=== PATIENT | male | born 1990 | race Caucasian/White ===

== ENCOUNTER 2016-05-24 00:53 | Emergency (ER) | payer BC ==
[2016-05-24 01:09] VITALS: BP 150/90
--- NOTE | 2016-05-24 01:58 | ERNOTE ---
Abdominal HPI - General Chief Complaint: Abdominal Pain Time Seen by Provider: 05/24/16 01:45 Source: patient Exam Limitations: no limitations - Immun/Allergies/Home Medications Immunizatons: IMMUNIZATION HX Immunizations Up to Date Yes History of Influenza Vaccine No Hx Pneumococcal Vaccination No Allergies/Adverse Reactions: Allergies Penicillins Allergy (Mild, Verified 09/04/15 15:57) Hives Home Medications: HOME MEDICATIONS Albuterol Sulfate [Proair Hfa] 2 puff IH Q4H PRN #1 inhaler 09/04/15 [Last Taken Unknown] Ibuprofen [Motrin] 1,000 mg PO PRN PRN 09/04/15 [Last Taken Unknown] Ibuprofen [Motrin] 800 mg PO TID PRN #60 tab 09/04/15 [Last Taken Unknown] Phenylephrine/Dm/Acetaminop/GG [Tylenol Cold & Flu Severe Cplt] 1 each PO PRN PRN 09/04/15 [Last Taken Unknown] - History of Present Illness Narrative: Pt states his abdomen is feeling queesy. this makes him feel unmotivated. occasional pains Timing: intermittent Quality: mild, moderate Activities at Onset: none Associated Symptoms: Present: other - lack of ambition Review of Systems - Review of Systems Constitutional: Present: chills - hot and cold. Absent: recent illness, fever EYE: Present: no symptoms reported ENT: Present: no symptoms reported Respiratory: Present: no symptoms reported Cardiology: Present: no symptoms reported Gastrointestinal/Abdominal: Present: diarrhea - mldly. Absent: vomiting, constipation Genitourinary: Absent: frequency, pain Musculoskeletal: Present: no symptoms reported Skin: Present: no symptoms reported Neurological: Present: no symptoms reported - Patient's Past Medical History Patient History - Medical: No pertinent hx Patient History - Cardiac/Respiratory: No pertinent hx Patient History - Cancer: No Hx of Cancer Patient History - Surgical Procedures: Other Patient History - Other: None - Family History Mother Family History - Medical: No pertinent hx Father Family History - Medical: Diabetes Type 2 - Social History Living Situations: home Smoking Status: Never smoker Alcohol Use: none Drug Use: none - Immunizations Immunizations Up to Date: Yes Hx Pneumococcal Vaccination: No History of Influenza Vaccine: No Physical Exam - Physical Exam General Appearance: Present: wd/wn, alert, no apparent distress Eye Exam: Normal inspection: bilateral Respiratory: Present: no respiratory distress, normal breath sounds, lungs clear Cardiovascular/Chest: Present: regular rate, rhythm, no murmur, normal peripheral pulses Gastrointestinal/Abdominal: Present: normal bowel sounds, nondistended, soft, tenderness - LUQ, RLQ Back Exam: Present: normal inspection, normal range of motion, no CVA tenderness Extremity Exam: Present: normal inspection, non-tender, no edema, normal range of motion Neurological Exam: Present: alert, oriented, normal mood/affect, no motor/ sensory deficits Skin Exam: Present: normal color, warm/dry ED Progress - Results and Orders Patient's Lab Results:: I have reviewed the patient's lab results. Results and Orders: Laboratory Tests 05/24/16 05/24/16 05/24/16 01:55 02:00 02:00 WBC 7.9 Hgb 15.7 Hct 45.0 Plt Count 254 Sodium 140 Potassium 3.9 Chloride 104 Carbon Dioxide 25.0 BUN 14 Creatinine 0.75 Est GFR (Non-Af Amer) 133 H Random Glucose 115 H Calcium 8.9 Total Bilirubin 0.7 AST 31 ALT 74 H Alkaline Phosphatase 68 Total Protein 7.7 Albumin 4.0 Amylase 94 Lipase 108 Urine Color Yellow Urine Appearance Clear Urine pH 6.0 Ur Specific [place] >=1.030 Urine Protein Negative Urine Glucose (UA) Negative Urine Ketones Negative Urine Blood Negative Urine Nitrate Negative Urine Bilirubin Negative Urine Urobilinogen Normal Ur Leukocyte Esterase Negative Urine RBC None seen Urine WBC None seen Ur Epithelial Cells None seen Urine Bacteria None seen Urine Culture Comments No culture indicated - Vital Signs Patient's Vital Signs:: I have reviewed the patient's vital signs. Vital Signs: Vital Signs 05/24/16 05/24/16 00:54 01:03 Temperature 36.2 C L Pulse Rate 86 Respiratory 20 Rate Blood Pressure 129/77 150/90 O2 Sat by Pulse 95 Oximetry - X-Ray X-Ray #1 X-Ray: abdomen Interpretation: Interp. by me X-ray Comments: moderate stool in the acending colon, no evidence of obstruction - Progress/Reassessment Chief Complaint: Abdominal Pain Progress Note-Subjective: 05/24/16 05:50 Pt left AMA while waiting for return of x-rays and labs. Stated that he was feeling better and did not want to wait any longer Departure - Departure Clinical Impression: Constipation Qualifiers: Constipation type: unspecified constipation type Qualified Code(s): K59.00 - Constipation, unspecified Disposition: Against medical advice Condition: Stable
[2016-05-24 02:07] LABS: Hemoglobin 15.7 gm/dL (13.5-18.0); Mean Cell Volume 84.4 fl (78-100); Mean Corpuscular Hemoglobin 29.5 pg (27-31); Mean Corpuscular Hgb Conc 34.9 g/dl (32-36); Mean Platelet Volume 9.9 fl (6.0-9.5); Neutrophil # 3.4 K/mm3 (1.3-6.0); Neutrophil % 43.4 % (42-75.0); Platelet Count 254 K/mm3 (150-450); Red Blood Count 5.33 M/mm3 (4.7-6.0); Red Cell Distribution Width 11.6 % (11.5-14.0); White Blood Count 7.9 K/mm3 (4.0-10.5)
[2016-05-24 02:12] LABS: Urine Bilirubin Negative (NEGATIVE); Urine Blood Negative /ul (NEGATIVE); Urine Ketone Negative (NEGATIVE); Urine Nitrite Negative (NEGATIVE); Urine Protein Negative (NEGATIVE); Urine Specific Gravity >=1.030 SP.GR. (1.005-1.030); Urine Urobilinogen Normal (NORMAL)
[2016-05-24 02:21] LABS: Urine Appearance Clear; Urine Bacteria None Seen; Urine Color Yellow; Urine RBC None Seen /hpf (0-5); Urine WBC None Seen /hpf (0-5)
[2016-05-24 02:32] LABS: Anion Gap 14.9 mmol/L (6.8-13.8); BUN/Creatinine Ratio 18.7 (9.0-21.6); Bilirubin, Total 0.7 mg/dL (0.0-1.1); Ca. Corrected For Albumin 8.6 mg/dL (8.4-10.2); Calcium * 8.9 mg/dL (7.9-10.9); Potassium 3.9 mmol/L (3.4-4.6); Total Protein 7.7 gm/dL (6.2-8.2)
== END 2016-05-24 04:05 | disposition left against medical advice (07) ==
LOC: ER 00:53
DX: K59.00 Constipation, unspecified (principal)